=== PATIENT | female | born 1970 | race Caucasian/White ===

== ENCOUNTER 2018-07-14 03:11 | Emergency (ER) | payer BC ==
[~2018-07-14] VITALS: Ht 160 cm; Wt 50.8 kg
[2018-07-14 03:11] VITALS: BP_SYST 113
[2018-07-14] MEDS ORDERED: ONDANSETRON HCL 4 MG/2 ML VIAL IVP ONE ×2 (03:15→04:15)
[2018-07-14 03:33] LABS: BILIRUBIN,URINE NEGATIVE (NEGATIVE); BLOOD, URINE NEGATIVE (NEGATIVE); CLARITY/URINE CLEAR (CLEAR); COLOR,URINE YELLOW (YELLOW); GLUCOSE,URINE NEGATIVE (NEGATIVE); KETONES,URINE NEGATIVE (NEGATIVE); LEUKOCYTE ESTERASE ,URINE NEGATIVE (NEGATIVE); NITRITE, URINE NEGATIVE (NEGATIVE); PH,URINE 5.5 (5.0-8.0); PROTEIN URINE TRACE (NEGATIVE); UROBILINOGEN,URINE 0.2 (0.2-1.0)
[2018-07-14 03:39] LABS: HEMATOCRIT 49.6 % (36-48); HEMOGLOBIN 16.7 g/dL (12.0-16.0); MEAN CORPUSCULAR HEMOGLOBIN 31 pg (27-31); MEAN CORPUSCULAR HGB CONC 34 % (32-36); MEAN CORPUSCULAR VOLUME 92 fL (79.0-98.0); PLATELET COUNT (AUTO) 166 K/uL (130-430); RED BLOOD CELL COUNT(AUTO) 5.37 MIL/uL (4.2-6.2); RED CELL DISTRIBUTION WIDTH 11.6 % (9.0-15.0); WHITE BLOOD COUNT (AUTO) 4.8 K/uL (4.8-10.8)
[2018-07-14 03:45] LABS: BARBITURATE, URINE NEGATIVE (NEG <=200); BENZODIAZEPINE, URINE NEGATIVE (NEG <=150); CANNABINOID, URINE NEGATIVE (NEG <=50); COCAINE, URINE NEGATIVE (NEG <=150); METHAMPHETAMINES SCREEN,URINE NEGATIVE (NEG <=500); OPIATE, URINE NEGATIVE (NEG <=100); PHENCYCLIDINE SCREEN,URINE NEGATIVE (NEG <=25); UR TRICYCLIC ANTIDEPRESSANTS NEGATIVE (NEG <=300); URINE AMPHETAMINE NEGATIVE (NEG <=500); URINE METHADONE NEGATIVE (NEG <=200); URINE OXYCODONE SCREEN NEGATIVE (NEG <=100); URINE PROPOXYPHENE SCREEN NEGATIVE (NEG <=300)
[2018-07-14 03:50] LABS: INR 1.1 (0.8-1.2); PROTHROMBIN TIME 10.7 SECS (9.5-12.5)
[2018-07-14 03:56] LABS: CALCIUM 9.2 mg/dL (8.4-11.0); CREATININE 0.88 mg/dL (0.55-1.30); POTASSIUM 3.6 mmol/L (3.5-5.1)
[2018-07-14 04:02] LABS: TOTAL BILIRUBIN 0.4 mg/dL (0.0-1.0)
[2018-07-14 04:15] LABS: BASOPHILS % (MANUAL) 0 % (0-2); EOSINOPHILS % (MANUAL) 3 % (0-7); LYMPHOCYTES % (MANUAL) 44 % (20-46); MONOCYTES % (MANUAL) 6 % (0-11)
[2018-07-14] MEDS ORDERED: METOCLOPRAMIDE HCL 10 MG TABLET PO ONE (05:15)
[2018-07-14 05:44] VITALS: BP_SYST 120
== END 2018-07-14 05:44 | disposition home or self-care (01) ==
LOC: SED 03:11
DX: S00.83XA Contusion of other part of head, initial encounter (principal); R55 Syncope and collapse; Z88.0 Allergy status to penicillin; W22.8XXA Striking against or struck by other objects, initial encounter; Y93.89 Activity, other specified; Y92.89 Other specified places as the place of occurrence of the external cause; Y99.8 Other external cause status
CPT/HCPCS: 36415; 70450; 71045; 72125; 80053; 80307; 81003; 81025; 83690; 84484; 85007; 85027; 85379; 85610; 85730; 93005; 96374; 96376; 99285; G0482; J2405; J8597